=== PATIENT | male | born 1965 | race African-American/Black ===

== ENCOUNTER 2020-07-01 21:50 | Emergency (ER) | payer MEDICAID ==
[2020-07-01] MEDS ORDERED: Aspirin 81 MG Tab.Chew PO ONE (22:33)
[2020-07-01] MEDS ORDERED: ALPRAZolam 0.25 MG Tab PO ONE (22:34)
[2020-07-01 23:20] LABS: BLOOD UREA NITROGEN,BUN 11 mg/dL (7.0-18.0); CARBON DIOXIDE,CO2 25.6 mmol/L (21.0-32.0); CHLORIDE,CL 99 mmol/L (98-107); GLUCOSE RANDOM 127 mg/dL (74-106); SODIUM,NA 138 mmol/L (136-148)
--- NOTE | 2020-07-01 23:35 | CR ---
INDICATION: Shortness of breath TECHNIQUE: Portable upright AP view of the chest COMPARISON: None FINDINGS: The lungs are clear. There is no sizable pleural effusion or pneumothorax. The cardiomediastinal silhouette is normal. The visualized osseous structures are unremarkable. IMPRESSION: No acute intrathoracic process. Dictated by Francoise King MD @ Jul 01 2020 11:34PM Signed by Dr. Francoise King @ Jul 01 2020 11:34PM
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
== END 2020-07-02 00:06 | disposition home or self-care (01) ==
LOC: MW.ED 21:50
DX: S20.411A Abrasion of right back wall of thorax, initial encounter (principal); I11.0 Hypertensive heart disease with heart failure; I50.9 Heart failure, unspecified; R51.9 Headache, unspecified; M54.2 Cervicalgia; J44.9 Chronic obstructive pulmonary disease, unspecified; Z79.899 Other long term (current) drug therapy; Y04.2XXA Assault by strike against or bumped into by another person, initial encounter; Y92.009 Unspecified place in unspecified non-institutional (private) residence as the place of occurrence of the external cause
CPT/HCPCS: 36415; 71045; 80048; 83735; 83880; 84484; 85025; 93005; 99285; A9270; 93010; 99284